=== PATIENT | male | born 1960 | race Caucasian/White ===

== ENCOUNTER 2016-07-14 10:30 | Day surgery (SDC) | payer OTHER ==
[2016-07-14] VITALS (7 sets, daily range): BP systolic 104–141; BP diastolic 73–91; PULSE 63–76; RESP 16–27; Ht 152.4 cm; Wt 96.0 kg
[~2016-07-14] VITALS: Ht 152.4 cm; Wt 96.0 kg
[~2016-07-14 10:30] MED LIST: SEVOFLURANE 15 MIN ONE
[2016-07-14] MEDS ORDERED: AMLO5TAB4 PO (10:57)
[2016-07-14] MEDS ORDERED: ATEN50TA PO (10:59)
[2016-07-14] MEDS ORDERED: PRAV20TA63 PO (10:59)
[2016-07-14] MEDS ORDERED: ASPI-664 PO (11:00)
[2016-07-14] MEDS ORDERED: LIDOCAINE 1% (MPF) 30 ML INJ ONE (12:16)
[2016-07-14] MEDS ORDERED: BUPIVACAINE 0.5% (SDV) 30 ML INJ ONE (12:16)
[2016-07-14] MEDS ORDERED: DEXAMETHASONE 4 MG/ML 1 ML INJ ONE ×2 (12:17→12:58)
[2016-07-14] MEDS ORDERED: POVIDONE IODINE 10% 28.4 GM OINT ONE (12:17)
[2016-07-14] MEDS ORDERED: PROPOFOL 20 ML ONE (12:36)
[2016-07-14] MEDS ORDERED: FENTAnyl 50 MCG/ML VIAL ONE (12:36)
[2016-07-14] MEDS ORDERED: MIDAZOLAM 1 MG/ML 2 ML INJ ONE (12:36)
--- NOTE | 2016-07-14 12:52 | HPN ---
Date/Time of Note Date/Time of Note DATE: 07/14/16 TIME: 12:52 Interval H&P Admission Note Pt. seen H&P reviewed: No system changes EMIGDIO SIMONS DPM Jul 14, 2016 12:52
[2016-07-14] MEDS ORDERED: METOCLOPRAMIDE 10 MG INJ ONE (12:58)
[2016-07-14] MEDS ORDERED: KETOROLAC 30 MG INJ ONE (12:58)
[2016-07-14] MEDS ORDERED: ONDANSETRON 4 MG INJ ONE (12:58)
[2016-07-14] MEDS ORDERED: CEFAZOLIN 1 GM INJ ONE (12:58)
[2016-07-14] MEDS ORDERED: PHENYLephrine (100 MCG/ML) 5ML SYG ONE (13:01)
[2016-07-14] MEDS ORDERED: HYDROmorphONE (0.2 MG/ML) 10ML SYG IV PRN ×3 (13:30)
[2016-07-14] MEDS ORDERED: DIPHENHYDRAMINE 50 MG INJ IV PRN (13:30)
[2016-07-14] MEDS ORDERED: MEPERIDINE 25 MG INJ IV PRN (13:30)
[2016-07-14] MEDS ORDERED: ONDANSETRON 4 MG INJ IV PRN (13:30)
[2016-07-14] MEDS ORDERED: morphine (1 MG/ML) 10ML SYRINGE IV PRN ×3 (13:30)
[2016-07-14] MEDS ORDERED: METOCLOPRAMIDE 10 MG INJ IV PRN (13:30)
--- NOTE | 2016-07-14 17:18 | PREOPHP ---
DATE OF ADMISSION: 07/14/2016 This is a podiatric H and P. HISTORY OF PRESENT ILLNESS: Patient is being admitted to the hospital for elective foot surgery, pa lliative treatment unsuccessful. Patient has been explained surgery complications, alternatives and elected to have elective foot surgery. The patient points to the medial aspect of the IP joint of the hallux, right. Previous treatment palliative. ALLERGIES: TETRACYCLINE. MEDICATIONS: Blood pressure medicine, cholesterol medicine. REVIEW OF SYSTEMS: Negative heart, lung, liver, kidney, thyroid. Negative diabetes. SOCIAL HISTORY: Negative smoking or alcohol. PHYSICAL EXAMINATION: See any other pertinent history in upper extremity physical exam by Dr. Sachin finnegan. LOWER EXTREMITIES: DP, PT equal and regular. NEUROLOGICAL: Negative for pathology. DERMATOLOGICAL: Lesion medial aspect IP joint hallux right. MUSCULOSKELETAL: On x-ray findings are exostosis IP joint hallux right. FINAL DIAGNOSES: Exostosis interphalangeal joint hallux right. Dictated By: EMIGDIO ALVARADO/NOAH Conf#: [id number] DID#: [id number]
== END 2016-07-14 15:15 | disposition home or self-care (01) ==
LOC: SDS 10:30
PROVIDERS: ATTEND Podiatrist
DX: D16.31 Benign neoplasm of short bones of right lower limb (principal); I10 Essential (primary) hypertension; E78.5 Hyperlipidemia, unspecified
CPT/HCPCS: 28124; 82962; 88304; 88311; J0690; J1100; J1885; J2250; J2370; J2405; J2765; J3010; Z7512; Z7610; L3260-LT